=== PATIENT | male | born 2000 | race Caucasian/White ===

== ENCOUNTER 2024-04-11 01:17 | Emergency (ER) | payer MEDICAID, SELFPAY ==
[2024-04-11 01:18] VITALS: BMI 21.7
[2024-04-11 01:30] VITALS: BP 137/74; PULSE 88; RESP 18; TEMP 36.9; O2SAT 99
--- NOTE | 2024-04-11 01:37 | PD.EDURI ---
Upper Respiratory Inf. RME/HPI General Chief Complaint: Flu Like Symptoms Stated Complaint: COUGHING ,CONGESTION Time Seen by Provider: 04/11/24 01:24 Arrival date/time: 04/11/24 01:17 23 year old male present to emergency room with c/o of cough and congestion for 6 days. patient smoke daily SEVERITY: Symptoms are described as being severe with limitations on activities of daily living CONTEXT: The patient is unable to identify any inciting events. DURATION/TIMING: The symptoms started approximately 6 days ago and have been constant since and have been progressive getting worse. ASSOCIATED SYMPTOMS: The patient is unable to identify any other associated symptoms. MODIFYING FACTORS: The patient is unable to identify any alleviating or aggravating symptoms. PERTINENT ROS: no fevers, no chest pain/shortness of breath no nausea,vomiting, diarrhea, no dizziness/headache no rash no loc/syncope episode REVIEW OF SYSTEMS: See History of Present Illness - with the exception of those mentioned in the history of present illness, all other systems reviewed and reported as negative GENERAL: In general the patient is awake, interactive, in an emergency department gurney. HEAD/EYES/EARS/NOSE/THROAT: normo-cephalic, atraumatic, mucus membranes are moist, anicteric, palpebral conjunctiva is pink, trachea is midline. CARDIOVASCULAR: regular rate and regular rhythm, no murmurs, heart sounds are not distant, strong pulses in all four extremities that are equal and symmetric bilateral upper and lower extremities, normal capillary refill. CHEST/PULMONARY: normal chest rise and fall, good air movement, clear to auscultation bilaterally, normal inspiratory to expiratory ratios without evidence of respiratory distress. NECK: No midline/Paraspinal tenderness, no step off ROM/Strenght intact No Kernig and bruzinski sign. No trauma ABDOMEN: soft, not tender, no masses appreciated BACK: normal range of motion without pain. NEUROLOGICAL: cranio-facial features are symmetric, moves all four extremities equally without obvious limitations or weakness. EXTREMITY: no tenderness to palpation over the long bones or large joints of the bilateral upper and lower extremities, no joint swelling, no joint erythema, no signs of trauma, no unilateral leg swelling and no peripheral edema. SKIN: warm, dry, well-perfused, no jaundice, no rash, no telangiectasias or petechia. PSYCH: calm, cooperative, no evidence of psychosis or agitation Related Data Previous Rx's ?Medication ?Instructions ?Recorded ibuprofen 600 mg tablet 600 mg PO TID PRN pain #30 tabs 06/20/20 ibuprofen 800 mg tablet 800 mg PO TID PRN pain #30 tabs 07/29/20 crutch #2 ea 11/12/20 ibuprofen 600 mg tablet 600 mg PO QID PRN fever or pain 11/12/20 #30 tabs amoxicillin 875 mg-potassium 1 tab PO BID #20 tabs 04/21/23 clavulanate 125 mg tablet erythromycin 5 mg/gram (0.5 %) eye 0.5 inch ophthalmic (eye) QID #3.5 04/21/23 ointment grams albuterol sulfate 90 mcg/actuation 1 inh inhalation QID PRN shortness 04/11/24 aerosol inhaler of breath or wheezing #8.5 grams azithromycin 500 mg tablet 500 mg PO QDAY 3 days #3 tabs 04/11/24 benzonatate 200 mg capsule 200 mg PO TID PRN cough #30 caps 04/11/24 prednisone 20 mg tablet See Taper PO QDAY 3 days #3 tabs 04/11/24 Allergies Allergy/AdvReac Type Severity Reaction Status Date / Time sulfamethoxazole AdvReac Severe Vomiting Verified 04/11/24 01:19 trimethoprim AdvReac Severe Vomiting Verified 04/11/24 01:19 Course Course Course Narrative: Patient presenting with cough.? Patient afebrile.? No hypoxia.? ?Lung exam within normal limits.? Obtained and reviewed CXR, which did not reveal any acute abnormalities or infiltrates.?? History, physical exam, and radiographic findings were discussed with the patient.? At this time, it is felt that the most likely explanation for the patient's symptoms is acute bronchitis versus viral upper respiratory infection.? I also considered pneumonia, GERD, pneumothorax, PE but this appears less likely considering the data gathered thus far.? I have instructed the patient to return to the ER at any time if there are any new or worsening symptoms. Provided patient with prescription for cough suppressant.? Supportive treatment options were discussed.? ?The patient expressed understanding of and agreement with this plan.? Opportunity was given for questions prior to discharge and all stated questions were answered to the patient's satisfaction.? Plan:? Prescribed benzonate, predisone 20mg daily, azithromycin 500mg daily for 4 days, inhaler ( first dose of antibiotic, steroid, benzonate given prior to discharge)? Advised Pt on supportive therapies, including using a vaporizer/humidifer/steam from hot showers, advancement of fluids as tolerated, exercise, nasal saline sprays, rest, avoidance of cold air, avoidance of second-hand smoke, frequent hand-washing w/ soap and water, and OTC acetaminophen or ibuprofen as directed prn for pain control. Instructed Pt to monitor for shaking chills or T>100.5 deg F, persistent cough >7-10d, hemoptysis, delirium or confusion, cyanosis, and respiratory distress. Instructed Pt to f/up w/ PCP in days. Pt verbally expressed understanding and all questions were addressed to Pt's satisfaction. Quality Measures none Orders Category Date Time Status Albuterol* Inhaler [Proventil Inhaler] Med 04/11/24 01:32 Discontinued 2 puff INH X1 ONE Azithromycin Po [Zithromax PO] Med 04/11/24 01:32 Discontinued 500 mg PO X1 ONE Benzonatate [Tessalon] Med 04/11/24 01:32 Discontinued 200 mg PO X1 ONE predniSONE Med 04/11/24 01:32 Discontinued 20 mg PO X1 ONE Vital Signs Vital signs: Vital Signs Temperature 98.5 F 04/11/24 01:30 Pulse Rate 88 04/11/24 01:30 Respiratory Rate 18 04/11/24 01:30 Blood Pressure 137/74 H 04/11/24 01:30 Pulse Oximetry (%) 99 04/11/24 01:30 Oxygen Delivery Method Room Air 04/11/24 01:30 Upper Respiratory Infection Patient data External records reviewed:: None Clinical information provided by:: patient Social determinants that could affect healthcare access:: none Patient has the following chronic illnesses:: smoker How is presenting disease/condition affected by chronic disease/condition?: exacerbated by Evaluation data The following diagnostics were reviewed and interpreted by me:: other (specify) (none ) Lab and/or radiology exams considered but not ordered:: n/a Interpretation Summary: n/a Medications / Prescriptions Medications or Prescriptions considered but not ordered:: n/a Medication administrations:: Medication Administration History Discontinued Medications Albuterol (Albuterol Inh 8 Gm) 2 puff INH X1 ONE Stop: 04/11/24 01:33 Azithromycin (Azithromycin 250 Mg Tablet) 500 mg PO X1 ONE Stop: 04/11/24 01:33 Benzonatate (Benzonatate 100 Mg Capsule) 200 mg PO X1 ONE; Protocol Stop: 04/11/24 01:33 Prednisone (Prednisone 20 Mg Tablet) 20 mg PO X1 ONE Stop: 04/11/24 01:33 as state above Consultations Consultation(s) initiated? (list below): No Diagnosis Upper Respiratory Differential Diagnosis: upper respiratory infection, viral infection, bronchitis, influenza and pharyngitis Most likely diagnosis given after review of the tests above:: bronchitis Admission Indicated Admission indicated?: not indicated Admission Request Was there a request for admission?: No Disposition Plan Disposition Plan: Discharge Discharge Attestation Discharge Attestation: The patient and all family members were given an opportunity to ask questions and understood the discharge instructions. Discharge instructions specifically effects, indications for sooner follow up or return to the emergency department, and the expected course of current diagnosis. Patient condition: Stable Discharge Plan Plan Patient Disposition: HOME (Self Care) Prescriptions/Referrals Prescriptions/Med Rec: New azithromycin 500 mg tablet 500 mg PO QDAY 3 Days Qty: 3 0RF prednisone 20 mg tablet See Taper PO QDAY 3 Days Qty: 3 0RF Taper: Prednisone Taper 20 mg DAILY for 2 Days and 0 Hour 10 mg DAILY for 2 Days and 0 Hour 5 mg DAILY for 7 Days and 0 Hour benzonatate 200 mg capsule 200 mg PO TID PRN (Reason: cough) Qty: 30 0RF albuterol sulfate 90 mcg/actuation HFA aerosol inhaler 1 inh inhalation QID PRN (Reason: shortness of breath or wheezing) Qty: 8.5 0RF No Action ibuprofen 800 mg tablet 800 mg PO TID PRN (Reason: pain) Qty: 30 0RF ibuprofen 600 mg tablet 600 mg PO TID PRN (Reason: pain) Qty: 30 0RF (DME) crutch Misc See Rx Instructions .ROUTE .MEDSUPPLY Qty: 2 0RF Rx Instructions: As directed ibuprofen 600 mg tablet 600 mg PO QID PRN (Reason: fever or pain) Qty: 30 0RF erythromycin 5 mg/gram (0.5 %) ointment 0.5 inch ophthalmic (eye) QID Qty: 3.5 0RF amoxicillin-pot clavulanate 875-125 mg tablet 1 tab PO BID Qty: 20 0RF Problem List Clinical Impression: Bronchitis Patient/Caregiver Discharge Instructions Education Materials: ED Bronchitis with Wheezing (Adult) Print Language: Upper Sorbian Stand Alone Forms: [facility]iza Award Info., Patient Portal Info Letter
[2024-04-11] MEDS: predniSONE 20 MG TABLET PO (01:41)
[2024-04-11] MEDS: AZITHROMYCIN 250 MG TABLET 500 MG PO (01:42)
[2024-04-11] MEDS: ALBUTEROL INH 8 GM 2 PUFF INH (01:43)
[2024-04-11] MEDS: BENZONATATE 100 MG CAPSULE 200 MG PO (02:18)
[2024-04-11 02:19] VITALS: RESP 18
== END 2024-04-11 02:20 | disposition home or self-care (01) ==
LOC: SERX 02:02
PROVIDERS: Emergency Provider Emergency Medicine; PCP Family Medicine
DX: J40 Bronchitis, not specified as acute or chronic (principal)
CPT/HCPCS: 99281; J7512; A9270

== ENCOUNTER 2025-01-16 15:19 | Emergency (ER) | payer MEDICAID, SELFPAY ==
[2025-01-16 15:56] VITALS: BMI 26.1
--- NOTE | 2025-01-16 15:59 | PD.EDWOUND ---
ED Wound/Laceration-RME/HPI General Chief Complaint: Wound/Laceration Stated Complaint: Laceration to left hand from glass Time Seen by Provider: 01/16/25 15:32 Arrival date/time: 01/16/25 15:19 24-year-old male patient was brought in by family for evaluation regarding hand laceration. Patient was cleaning his house, and glass broke and patient sustained multiple lacerations to the hand dorsal aspect and wrist. Patient denies any other injury. No medication was taken prior to ER visit. Injury happened few minutes prior to ER visit. No active bleeding noted Related Data Previous Rx's ?Medication ?Instructions ?Recorded ibuprofen 600 mg tablet 600 mg PO TID PRN pain #30 tabs 06/20/20 ibuprofen 800 mg tablet 800 mg PO TID PRN pain #30 tabs 07/29/20 crutch #2 ea 11/12/20 ibuprofen 600 mg tablet 600 mg PO QID PRN fever or pain 11/12/20 #30 tabs amoxicillin 875 mg-potassium 1 tab PO BID #20 tabs 04/21/23 clavulanate 125 mg tablet erythromycin 5 mg/gram (0.5 %) eye 0.5 inch ophthalmic (eye) QID #3.5 04/21/23 ointment grams albuterol sulfate 90 mcg/actuation 1 inh inhalation QID PRN shortness 04/11/24 aerosol inhaler of breath or wheezing #8.5 grams benzonatate 200 mg capsule 200 mg PO TID PRN cough #30 caps 04/11/24 Allergies Allergy/AdvReac Type Severity Reaction Status Date / Time sulfamethoxazole AdvReac Severe Vomiting Verified 01/16/25 15:22 trimethoprim AdvReac Severe Vomiting Verified 01/16/25 15:22 Review of Systems Review of Systems Narrative Review of Systems: Review of system reviewed and within normal limits except mentioned in HPI ED Exam Narrative Physical exam: VITAL SIGNS: Reviewed. GENERAL APPEARANCE: Alert and interactive, follows commands, no acute distress, HEAD AND FACE: Non-traumatic. ENT: PERRL, pink conjunctivitis, eyelid no trauma, Mucous membrane moist. NECK: Supple, nontender, no nuchal rigidity. CHEST: No tenderness, no crepitus, no paradoxical movement, no retractions. LUNGS: Clear, well ventilated, symmetric, no rales, no wheezing, no ronchi, no stridor, good breath sounds bilaterally. HEART: Regular rate, regular rhythm, no murmur, no gallops. ABDOMEN: Soft, positive bowel sounds, nondistended, no guarding, nontender, no rebound, no masses, RECTAL: Deferred. GENITAL: Deferred. NEUROLOGICAL: Gross motor function intact sensory function intact, Appropriate for age. MUSCULOSKELETAL: low back nontender, full range of motion. EXTREMITIES: Nontender, + 2 cm laceration x 2, dorsal aspect of the left hand and 1 cm laceration dorsal aspect of the wrist , no abrasions, no contusions. LYMPHATICS: Deferred. Course Quality Measures none Orders Category Date Time Status Ibuprofen Tab [Motrin Tab] Med 01/16/25 15:58 Discontinued 800 mg PO X1 ONE Lidocaine 1% 20 ml [Xylocaine 1% 20 ML] Med 01/16/25 15:58 Discontinued 10 ml INFL X1 ONE TET,DIP/PERT AC (Adult)-Tdap [Boostrix Adult (Tdap) Med 01/16/25 15:58 Discontinued Vacc] 0.5 ml IMI .ONCE ONE Vital Signs Vital signs: Vital Signs Temperature 97.4 F 01/16/25 16:00 Pulse Rate 79 01/16/25 16:00 Respiratory Rate 19 01/16/25 16:00 Blood Pressure 114/69 01/16/25 16:00 Pulse Oximetry (%) 98 01/16/25 16:00 Oxygen Delivery Method Room Air 01/16/25 16:00 PROCEDURES: Laceration Laceration 1: Site: hand Side (If applicable): left Size (cm): 2 Description: linear Depth: simple, single layer Local Anesthetic: lidocaine 1% Amount of anesthesia used (mL): 5 Pre-repair: wound explored Skin layer closed with: nylon Suture size (cm): 4-0 Number of sutures: 4 Technique: simple, interrupted Wound / Laceration MDM Narrative MDM Narrative:: 01/16/25 15:19 24-year-old male patient was brought in by family for evaluation regarding hand laceration. Patient was cleaning his house, and glass broke and patient sustained multiple lacerations to the hand dorsal aspect and wrist. Patient denies any other injury. No medication was taken prior to ER visit. Injury happened few minutes prior to ER visit. No active bleeding noted Imaging is not this time. Repair and suturing was done by me see procedure note \Stable discharge home Patient data External records reviewed:: None Clinical information provided by:: patient Social determinants that could affect healthcare access:: none Patient has the following chronic illnesses:: None How is presenting disease/condition affected by chronic disease/condition?: no chronic disease Evaluation data The following diagnostics were reviewed and interpreted by me:: other (specify) (None) Lab and/or radiology exams considered but not ordered:: None Interpretation Summary: None Medications / Prescriptions Medications or Prescriptions considered but not ordered:: None Medication administrations:: Medication Administration History Discontinued Medications Diphtheria/Tetanus/Acell Pertussis (Diphth,Pertuss(Acell),Tet Vac 0.5 Ml Syr- Adult) 0.5 ml IMi .ONCE ONE Stop: 01/16/25 15:59 Last Admin: 01/16/25 16:20 Dose: 0.5 ml Documented By: JESSICA Ibuprofen (Ibuprofen Tab 400 Mg Tablet) 800 mg PO X1 ONE Stop: 01/16/25 15:59 Last Admin: 01/16/25 16:19 Dose: 800 mg Documented By: JESSICA Lidocaine HCl (Lidocaine Hcl 1% 20 Ml Vial) 10 ml INFL X1 ONE Stop: 01/16/25 15:59 Last Admin: 01/16/25 16:20 Dose: 10 ml Documented By: JESSICA Comments: USED BY PROVIDER Lucia Lucas Consultations Consultation(s) initiated? (list below): No Diagnosis Wound Differential Diagnosis: laceration, abrasion and avulsion of skin Most likely diagnosis given after review of the tests above:: Hand laceration Admission Indicated Admission indicated?: not indicated Admission Request Was there a request for admission?: No Disposition Plan Disposition Plan: Discharge Discharge Attestation Discharge Attestation: The patient and all family members were given an opportunity to ask questions and understood the discharge instructions. Discharge instructions specifically effects, indications for sooner follow up or return to the emergency department, and the expected course of current diagnosis. Patient condition: Stable Discharge Plan Plan Patient Disposition: HOME (Self Care) Discharge Disposition comment: stable Prescriptions/Referrals Prescriptions/Med Rec: No Action ibuprofen 800 mg tablet 800 mg PO TID PRN (Reason: pain) Qty: 30 0RF ibuprofen 600 mg tablet 600 mg PO TID PRN (Reason: pain) Qty: 30 0RF (DME) crutch Misc See Rx Instructions .ROUTE .MEDSUPPLY Qty: 2 0RF Rx Instructions: As directed ibuprofen 600 mg tablet 600 mg PO QID PRN (Reason: fever or pain) Qty: 30 0RF erythromycin 5 mg/gram (0.5 %) ointment 0.5 inch ophthalmic (eye) QID Qty: 3.5 0RF amoxicillin-pot clavulanate 875-125 mg tablet 1 tab PO BID Qty: 20 0RF benzonatate 200 mg capsule 200 mg PO TID PRN (Reason: cough) Qty: 30 0RF albuterol sulfate 90 mcg/actuation HFA aerosol inhaler 1 inh inhalation QID PRN (Reason: shortness of breath or wheezing) Qty: 8.5 0RF Problem List Clinical Impression: Laceration of hand Patient/Caregiver Discharge Instructions Discharge Activity: activity as tolerated Education Materials: ED Laceration, Hand: All Closures Additional Instructions: Thank you for the opportunity for serving you today. You are stable for discharged . You are advised to: Follow-up with your PCP in 1 to 2 days Return to ED for worsening of symptoms Increase oral fluids Take [id number] Tylenol Motrin as needed for pain Daily dressing with triple antibiotic as needed For removal of sutures in 7 to 10 days Print Language: Spanish Stand Alone Forms: Luiza Award Info., Patient Portal Info Letter PA/WOOD BARKER Supervising Physician ZULEYKA/CANDACE Supervising Physician: MD Dana
[2025-01-16 16:00] VITALS: BP 114/69; PULSE 79; RESP 19; TEMP 36.3; O2SAT 98
[2025-01-16] MEDS: IBUPROFEN TAB 400 MG TABLET 800 MG PO (16:19)
[2025-01-16] MEDS: LIDOCAINE HCL 1% 20 ML VIAL 10 ML INFL (16:20)
[2025-01-16] MEDS: DIPHTH,PERTUSS(ACELL),TET VAC 0.5 ML SYR- ADULT IMi (16:20)
== END 2025-01-16 16:41 | disposition home or self-care (01) ==
LOC: SERX 17:39
PROVIDERS: Emergency Provider Emergency Medicine
DX: S61.412A Laceration without foreign body of left hand, initial encounter (principal); W25.XXXA Contact with sharp glass, initial encounter
CPT/HCPCS: 12002; 90471; 90715; 99281; J3490; A9270